=== PATIENT | male | born 1970 | race Caucasian/White ===

== ENCOUNTER 2018-03-10 18:12 | Inpatient (IN) | payer BC, OTHER ==
[~2018-03-10] VITALS: Ht 180.3 cm; Wt 76.3 kg
[2018-03-10] MEDS ORDERED: MORPHINE SULFATE 2 MG/1 ML DISP.SYRIN IV ONE (19:15)
[2018-03-10] MEDS ORDERED: ONDANSETRON 4 MG/2 ML VIAL IV ONE (19:15)
[2018-03-10] MEDS ORDERED: IV NORMAL SALINE 1000 ML BAG IV ONE (19:15)
[2018-03-10] MEDS ORDERED: ACETAMINOPHEN ES 500 MG TABLET PO ONE (19:15)
[2018-03-10] MEDS ORDERED: ACETAMINOPHEN ES 500 MG TABLET ONE (19:17)
[2018-03-10] MEDS ORDERED: MORPHINE SULFATE 4 MG/1 ML DISP.SYRIN ONE ×2 (19:18→22:40)
[2018-03-10] MEDS ORDERED: ONDANSETRON 4 MG/2 ML VIAL ONE ×2 (19:18→22:41)
[2018-03-10 19:28] LABS: BASOPHILS % (AUTO) 0.1 % (0.0-2.0); EOSINOPHILS % (AUTO) 0.4 % (0.0-7.0); HEMATOCRIT 43.3 % (36.7-47.1); HEMOGLOBIN 14.8 g/dL (12.5-16.3); LYMPHOCYTES # (AUTO) 0.4 K/uL (20.0-40.0); LYMPHOCYTES % (AUTO) 2.9 % (20.5-51.5); MEAN CORPUSCULAR HEMOGLOBIN 31.6 uug (23.8-33.4); MEAN CORPUSCULAR HGB CONC 34 g/dL (32.5-36.3); MEAN CORPUSCULAR VOLUME 92.2 fL (73.0-96.2); MONOCYTES # (AUTO) 0.2 K/uL (2.0-10.0); MONOCYTES % (AUTO) 1.8 % (0.0-11.0); NEUTROPHILS # (AUTO) 13.3 K/uL (1.8-8.9); NEUTROPHILS % (AUTO) 94.8 % (38.5-71.5); PLATELET COUNT (AUTO) 175 K/uL (152-348)
[2018-03-10 19:39] LABS: BILIRUBIN,DIRECT 0.3 mg/dL (0.0-0.2); BILIRUBIN,TOTAL 1.5 mg/dL (0.2-1.0); CREATININE 1.4 mg/dL (0.6-1.3); POTASSIUM 3.7 mmol/L (3.5-5.1); TOTAL PROTEIN, SERUM 6.4 g/dL (6.4-8.2)
[2018-03-10] MEDS ORDERED: IV NORMAL SALINE 250 ML IV ONE (19:46)
[2018-03-10] MEDS ORDERED: IOHEXOL 300MG/ML 100 ML INFUS..BTL ONE (19:46)
[2018-03-10] MEDS ORDERED: NORMAL SALINE FLUSH 10 ML DISP.SYRIN ONE (19:46)
[2018-03-10] MEDS ORDERED: SWABABLE VALVE TRANSFER SET EA MC ONE (19:46)
--- NOTE | 2018-03-10 20:10 | NUR ---
Collected urine sample, sent to lab.
[2018-03-10 20:15] LABS: *BILIRUBIN,URIN NEGATIVE (NEGATIVE); *BLOOD, URINE NEGATIVE (NEGATIVE); *CLARITY,URINE CLEAR (CLEAR); *COLOR,URINE YELLOW (YELLOW); *KETONES,URINE TRACE (NEGATIVE); *PROTEIN,URINE NEGATIVE (NEGATIVE); LEUKOCYTE ESTERASE ,URINE NEGATIVE (NEGATIVE); NITRITE, URINE NEGATIVE (NEGATIVE); PH,URINE 8.5 (5.0-8.0); UGLUCOSE NEGATIVE (NEGATIVE)
--- NOTE | 2018-03-10 20:17 | NUR ---
Pt went down to radiology dept for CT scan.
[2018-03-10 20:18] LABS: BACTERIA,URINE NONE SEEN /HPF (NONE SEEN); RBC,URINE 0-3 /HPF (0-3); SQUAMOUS EPITHELIAL CELL,UR FEW /HPF (NONE SEEN); WBC,URINE 0-3 /HPF (0-3)
--- NOTE | 2018-03-10 20:35 | NUR ---
Pt back from CT scan.
--- NOTE | 2018-03-10 21:07 | NUR ---
Dr. Pimentel speaking to Dr. Stone.
--- NOTE | 2018-03-10 21:11 | NUR ---
Paged Epic for panel call. Waiting call back from Vasquez Singleton.
[2018-03-10] MEDS ORDERED: METRONIDAZOLE 500 MG/NS 100ML 100 ML IV ONE (21:13)
[2018-03-10] MEDS ORDERED: METRONIDAZOLE 500 MG/NS 100 ML PIGGYBACK IV ONE (21:15)
[2018-03-10] MEDS ORDERED: IV NORMAL SALINE 500 ML BAG IV ONE (21:15)
[2018-03-10] MEDS ORDERED: CIPROFLOXACIN IV 400 MG in PREMIXED 1 EACH IV SCH (21:15)
--- NOTE | 2018-03-10 22:36 | NUR ---
Pt. admitted to Med/Surg , under care of Vasquez Singleton. Diagnosis: Appendicitis. Belongs List completed. Report given to Jade MEADOWS.
[2018-03-10] MEDS ORDERED: ONDANSETRON 4 MG/2 ML VIAL IV STA (22:39)
[2018-03-10] MEDS: MORPHINE SULFATE 4 MG/1 ML DISP.SYRIN IV PRN (22:48)
[2018-03-10 23:00] VITALS: BP 139/92
--- NOTE | 2018-03-10 23:15 | NUR ---
RECEIVED PT FROM ER VIA [facility]. PT UNDER THE CARE OF RR. OZ STALEY. ADMISSION PROCESS AND PLAN INITIATED. PRISON ASSESSMENTDONE. BELONGING LIST DONE. IV INTACT AND PATENT. SAFETY AND COMFORT PROVIDED. WILL CONTINUE TO MONITOR.
[2018-03-11] MEDS ORDERED: MORPHINE SULFATE 4 MG/1 ML DISP.SYRIN IV PRN (00:15)
[2018-03-11] MEDS: IV D5/ 0.9% NACL 1,000 ML IV PRN ×2 (00:46→19:33)
[2018-03-11] MEDS ORDERED: METRONIDAZOLE 500 MG/NS 100ML 100 ML IV ONE (01:19)
[2018-03-11] MEDS: ONDANSETRON 4 MG/2 ML VIAL IV PRN ×4 (03:18→23:16)
[2018-03-11 04:00] VITALS: BP 144/92
[2018-03-11] MEDS: MORPHINE SULFATE 4 MG/1 ML DISP.SYRIN IV PRN ×4 (04:00→23:39)
[2018-03-11 05:20] VITALS: BP 134/80
[2018-03-11] MEDS: ACETAMINOPHEN 325 MG TABLET PO PRN ×2 (05:23→20:34)
[2018-03-11] MEDS: METRONIDAZOLE 500 MG/NS 100ML 500 MG in PREMIXED 1 EACH IV SCH ×3 (05:27→21:57)
[2018-03-11 06:28] LABS: CREATININE 1.3 mg/dL (0.6-1.3); MAGNESIUM 1.5 mg/dL (1.8-2.4); PHOSPHOROUS 2.2 mg/dL (2.5-4.9); POTASSIUM 3.8 mmol/L (3.5-5.1)
[2018-03-11 06:48] LABS: BASOPHILS % (AUTO) 0.2 % (0.0-2.0); EOSINOPHILS % (AUTO) 0.1 % (0.0-7.0); HEMATOCRIT 43.2 % (36.7-47.1); HEMOGLOBIN 14.7 g/dL (12.5-16.3); LYMPHOCYTES # (AUTO) 0.3 K/uL (20.0-40.0); LYMPHOCYTES % (AUTO) 2.6 % (20.5-51.5); MEAN CORPUSCULAR HEMOGLOBIN 31.1 uug (23.8-33.4); MEAN CORPUSCULAR HGB CONC 34 g/dL (32.5-36.3); MEAN CORPUSCULAR VOLUME 91.6 fL (73.0-96.2); MONOCYTES # (AUTO) 0.5 K/uL (2.0-10.0); MONOCYTES % (AUTO) 4.1 % (0.0-11.0); NEUTROPHILS # (AUTO) 10.8 K/uL (1.8-8.9); PLATELET COUNT (AUTO) 167 K/uL (152-348); RED BLOOD CELL COUNT(AUTO) 4.71 MIL/uL (4.06-5.63); WHITE BLOOD COUNT (AUTO) 11.6 K/uL (3.6-10.2)
--- NOTE | 2018-03-11 06:49 | NUR ---
PT SLEPT INTERMITTENTLY.PT SHOWS NO SIGNS OF DISTRESS. PRESCRIBED MEDICATION GIVEN AND PT TOLERATED IT WELL. NOTIFY SILVIA MONGE REGARDING PT TEMP 102.8 AND CHEST PAIN OF PT. GAVE ORDERS OF TYLENOL AND STAT EKG. DID COOLING MEASURES FOR THE PT. IV INTACT. SAFETY AND COMFORT PROVIDED. WILL ENDORSE TO INCOMING NURSE FOR CONTINUITY OF CARE.
[2018-03-11] MEDS ORDERED: MAGNESIUM SULFATE/D5W 100 ML IV SCH (10:00)
[2018-03-11] MEDS ORDERED: LIDOCAINE 1%-EPI 1:100,000 20 ML VIAL ONE (10:37)
[2018-03-11] MEDS ORDERED: BUPIVACAINE 0.25% 30 ML VIAL ONE (10:37)
[2018-03-11 11:38] VITALS: BP 130/86
--- NOTE | 2018-03-11 12:36 | NUR ---
Patient picked up by OR nurse. Patient remains alert, verbally responsive, not in any form of acute distress. at bedside.
[2018-03-11] MEDS ORDERED: MIDAZOLAM HCL 2 MG/2 ML VIAL ONE (12:44)
[2018-03-11] MEDS ORDERED: FENTANYL CITRATE 250 MCG/5 ML AMPUL ONE (12:45)
[2018-03-11] MEDS ORDERED: ROCURONIUM BROMIDE 50 MG/5 ML VIAL ONE (12:46)
[2018-03-11] MEDS ORDERED: HYDROCODONE/APAP 5-325MG TABLET PO PRN (14:00)
[2018-03-11] MEDS ORDERED: GLYCOPYRROLATE 0.2 MG/ML VIAL MC ONE (14:35)
[2018-03-11] MEDS ORDERED: KETOROLAC TROMETHAMINE 30 MG INJ IM ONE (14:35)
[2018-03-11] MEDS ORDERED: SEVOFLURANE 250 ML BOTTLE IH ONE (14:35)
[2018-03-11] MEDS ORDERED: PROPOFOL 200 MG/20 ML BOTTLE IV ONE (14:35)
[2018-03-11] MEDS ORDERED: LIDOCAINE HCL 2% 20 ML VIAL MC ONE (14:35)
[2018-03-11] MEDS ORDERED: IV NORMAL SALINE 1000 ML BAG IV ONE (14:35)
[2018-03-11] MEDS ORDERED: NEOSTIGMINE METHYLSULFATE 10 MG/10 ML VIAL IV ONE (14:35)
[2018-03-11] MEDS ORDERED: ONDANSETRON 4 MG/2 ML VIAL IV ONE (14:35)
--- NOTE | 2018-03-11 15:29 | NUR ---
Patient back from surgery. Patient awake,alert,verbally responsive.
[2018-03-11] MEDS ORDERED: NEUTRA PHOS PACKET PO ONE (15:30)
[2018-03-11 16:02] VITALS: BP 125/80
--- NOTE | 2018-03-11 19:15 | NUR ---
RECEIVED PT AWAKE, ALERT, AND ORIENTEDX4. FAMILY AT BEDSIDE. IV INTACT AND PATENT. PT SHOWS NO SIGNS OF DISTRESS. CALL LIGHT WITHIN REACH. SAFETY AND COMFORT PROVIDED. WILL CONTINUE TO MONITOR.
[2018-03-11 20:00] VITALS: BP 133/83
[2018-03-11] MEDS: LEVOFLOXACIN 500 MG/D5W 500 MG in PREMIXED 1 EACH IV SCH (20:34)
[2018-03-12] MEDS: ZOLPIDEM 5 MG TABLET PO PRN (02:40)
[2018-03-12 04:00] VITALS: BP 136/85
[2018-03-12] MEDS: ACETAMINOPHEN 325 MG TABLET PO PRN ×2 (04:39→14:30)
[2018-03-12] MEDS: METRONIDAZOLE 500 MG/NS 100ML 500 MG in PREMIXED 1 EACH IV SCH ×3 (05:17→21:33)
--- NOTE | 2018-03-12 06:16 | NUR ---
PT SLEPT INTERMITTENTLY. PT SHOWS NO SIGNS OF DISTRESS. PT IV INTACT AND PATENT. PRESCRIBED MEDICATION GIVEN AND PT TOLERATED IT WELL. AT 2034H PT WAS GIVEN TYLENOL BECAUSE OF HEADACHE. PT WAS ALSO GIVEN ZOFRAN AT 2316H AND MORPHINE AT 2339H FOR PAIN. PT GIVEN ICE PACK . PT AMBULATE 1 ROUND. PT TOLERATED IT WELL. AT 0400H PT TEMPERATURE BECOME 102 F . GIVEN TYLENOL AND COOLING MEASURES. PT TEMP AT 0600H IS 99.5. PT AFEBRILE. PT STABLE . VITAL SIGNS WITHIN NORMAL LIMIT.SAFETY AND COMFORT PROVIDED.ALL NEEDS ARE MET. WILL ENDORSE TO DAYSMTFT NURSE FOR CONTINUITY OF CARE.
[2018-03-12 06:27] LABS: BASOPHILS % (AUTO) 0.3 % (0.0-2.0); EOSINOPHILS % (AUTO) 0.2 % (0.0-7.0); HEMATOCRIT 40.9 % (36.7-47.1); HEMOGLOBIN 13.8 g/dL (12.5-16.3); LYMPHOCYTES # (AUTO) 0.2 K/uL (20.0-40.0); LYMPHOCYTES % (AUTO) 3.1 % (20.5-51.5); MEAN CORPUSCULAR HEMOGLOBIN 31.5 uug (23.8-33.4); MEAN CORPUSCULAR HGB CONC 34 g/dL (32.5-36.3); MEAN CORPUSCULAR VOLUME 93.6 fL (73.0-96.2); MONOCYTES # (AUTO) 0.4 K/uL (2.0-10.0); MONOCYTES % (AUTO) 6.8 % (0.0-11.0); NEUTROPHILS # (AUTO) 5.9 K/uL (1.8-8.9); NEUTROPHILS % (AUTO) 89.6 % (38.5-71.5); PLATELET COUNT (AUTO) 143 K/uL (152-348); RED BLOOD CELL COUNT(AUTO) 4.36 MIL/uL (4.06-5.63); WHITE BLOOD COUNT (AUTO) 6.5 K/uL (3.6-10.2)
[2018-03-12 06:44] LABS: CREATININE 1.3 mg/dL (0.6-1.3); MAGNESIUM 1.8 mg/dL (1.8-2.4); POTASSIUM 3.7 mmol/L (3.5-5.1)
[2018-03-12] MEDS: OXYCODONE/APAP 5-325 MG TABLET PO PRN ×2 (10:28→20:30)
[2018-03-12] MEDS: ONDANSETRON 4 MG/2 ML VIAL IV PRN ×2 (10:31→20:20)
[2018-03-12] MEDS: IV D5/ 0.9% NACL 1,000 ML IV PRN (10:32)
[2018-03-12 11:16] VITALS: BP 136/90
--- NOTE | 2018-03-12 11:30 | NUR ---
PATIENT TOOK TWO LAPS AROUND FLOOR WITH RN STANDBY ASSIST, TOLERATED WELL WITH MILD PAIN
--- NOTE | 2018-03-12 14:30 | NUR ---
PATIENT TEMP 101.8, TYLENOL GIVEN, ICE PACKS GIVEN AND ENCOURAGED TO USE INCENTIVE SPIROMETER. PATIENT VERBALIZED UNDERSTANDING
[2018-03-12 15:30] VITALS: BP 136/89
--- NOTE | 2018-03-12 16:10 | NUR ---
RE CHECKED TEMP, STILL 101.8, CHATA CARRANZA NOTIFIED NO NEW ORDERS AT THIS TIME. PATIENT AMBULATED 2 LAPS AROUND UNIT WITH RN STANDBY ASSIST, ASSISTED BACK TO BED WITH ICE PACKS, AND ENCOURAGED USE OF INCENTIVE SPIROMETER, WILL CONTINUE TO MONITOR
--- NOTE | 2018-03-12 19:40 | NUR ---
Observed to be sitting up in bed with family at bedside, AAO x 3. Temperature noted to be 99.3 at this time. Safe environment implemented. Call light within reach.
[2018-03-12] MEDS: LEVOFLOXACIN 500 MG/D5W 500 MG in PREMIXED 1 EACH IV SCH (20:20)
[2018-03-12 20:23] VITALS: BP 135/89
[2018-03-13] MEDS: ZOLPIDEM 5 MG TABLET PO PRN (00:41)
[2018-03-13] MEDS: IV D5/ 0.9% NACL 1,000 ML IV PRN (00:41)
[2018-03-13] MEDS: ONDANSETRON 4 MG/2 ML VIAL IV PRN (01:22)
[2018-03-13 04:26] VITALS: BP 146/97
[2018-03-13] MEDS: METRONIDAZOLE 500 MG/NS 100ML 500 MG in PREMIXED 1 EACH IV SCH ×2 (05:51→13:29)
--- NOTE | 2018-03-13 07:30 | NUR ---
RECEIVED PT AWAKE, ALERT, AND ORIENTEDX4. . IV INTACT AND PATENT. PT SHOWS NO SIGNS OF DISTRESS. CALL LIGHT WITHIN REACH. SAFETY AND COMFORT PROVIDED. WILL CONTINUE TO MONITOR.
--- NOTE | 2018-03-13 10:11 | NUR ---
pt walking in the hallway tolerated well
[2018-03-13 11:17] VITALS: BP 139/95
[2018-03-13 15:10] VITALS: BP 150/96
--- NOTE | 2018-03-13 18:31 | NUR ---
d/c orders received noted and carried out,d/c instructions and education given to the pt,d/c jude per md orders.pt left the facility via private car in stable condition
== END 2018-03-13 18:30 | disposition home or self-care (01) | DRG 343 ==
LOC: ER 18:14 → MED 22:34
PROVIDERS: ADMIT Nurse Practitioner Acute Care; ATTEND Nurse Practitioner Acute Care
PROC: 0DTJ4ZZ Resection of Appendix, Percutaneous Endoscopic Approach (ICD-10-PCS; principal; 2018-03-11 12:46)
DX: K35.80 Unspecified acute appendicitis (principal); D72.829 Elevated white blood cell count, unspecified; Z88.0 Allergy status to penicillin; Z86.61 Personal history of infections of the central nervous system; E83.42 Hypomagnesemia; E83.51 Hypocalcemia; Z87.891 Personal history of nicotine dependence; G44.009 Cluster headache syndrome, unspecified, not intractable; F12.90 Cannabis use, unspecified, uncomplicated; E80.6 Other disorders of bilirubin metabolism
CPT/HCPCS: 36415; 70030-TC; 83690; 83735; 84100; 85025; 85730; 93005; A4663; A9150; J0744; J1885; J1956; J2250; J2270; J2405; J2710; J3010; J3475; J3490; J7030; J7042; J7050; Q9967